=== PATIENT | male | born 1995 | race African-American/Black ===

== ENCOUNTER 2023-01-26 03:06 | Emergency (ER) | payer SELFPAY ==
[2023-01-26] MEDS ORDERED: Take Home: Albuterol 18 GM Inhaler, 1 Inhaler Pack INH PRN (03:24)
[2023-01-26] MEDS ORDERED: Albuterol/Ipratropium 3.0-0.5 MG/3 ML Neb Soln NEB ONE (03:35)
== END 2023-01-26 03:30 | disposition home or self-care (01) ==
LOC: VM.ED 03:06
DX: J45.901 Unspecified asthma with (acute) exacerbation (principal)
CPT/HCPCS: 94640; 99284; A9270; J7620-GY